=== PATIENT | female | born 1940 | race Caucasian/White ===

== ENCOUNTER 2017-10-26 21:15 | Emergency (ER) | payer MEDICARE, OTHER ==
[~2017-10-26] VITALS: Ht 165.1 cm; Wt 72.2 kg
[2017-10-26] MEDS ORDERED: ONDANSETRON ODT 4 MG PO ONE (22:00)
[2017-10-26] MEDS ORDERED: ONDANSETRON ODT 4 MG ONE (22:05)
[2017-10-26 22:11] LABS: BASOPHILS # (AUTO) 0.07 x10^3/uL (0-0.1); BASOPHILS % (AUTO) 1 % (0-1); EOSINOPHILS # (AUTO) 0.02 x10^3/uL (0-0.4); EOSINOPHILS % (AUTO) 0 % (1-7); LYMPHOCYTES % (AUTO) 11 % (22-44); MD NO; MEAN CORPUSCULAR HEMOGLOBIN 31.8 pg (27.0-34.8); MEAN CORPUSCULAR HGB CONC 33.6 g/dL (32.4-35.8); MEAN CORPUSCULAR VOLUME 94.4 fL (80-100); MEAN PLATELET VOLUME 9.7 fL (7.4-10.4); MONOCYTES # (AUTO) 0.92 x10^3/uL (0.2-0.8); MONOCYTES % (AUTO) 8 % (2-9); NEUTROPHILS # (AUTO) 9.25 x10^3/uL (1.8-6.8); NEUTROPHILS % (AUTO) 81 % (42-75); PLATELET COUNT 201 x10^3/uL (130-400); RED BLOOD COUNT 4.03 x10^6/uL (3.82-5.3); RED CELL DISTRIBUTION WIDTH 14.2 % (9.6-15.2)
[2017-10-26 22:23] LABS: ALBUMIN 3.8 g/dL (3.4-5.0); ANION GAP 6 mmol/L (5-15); CALCIUM 9.2 mg/dL (8.5-10.1); CHLORIDE 107 mmol/L (98-107); CREATININE 0.84 mg/dL (0.55-1.02)
[2017-10-26 22:27] LABS: CULTURE INDICATED? YES; MICROSCOPIC INDICATED
[2017-10-26] MEDS ORDERED: CEFDINIR 300 MG CAPSULE ONE (22:50)
[2017-10-26 22:54] VITALS: BP 150/67
[2017-10-26] MEDS ORDERED: CEFDINIR 300 MG CAPSULE PO ONE (23:00)
== END 2017-10-26 23:14 | disposition home or self-care (01) ==
LOC: ED 23:08
DX: N30.01 Acute cystitis with hematuria (principal); Z90.89 Acquired absence of other organs
CPT/HCPCS: 36415; 80048; 81001; 82040; 85025; 87077; 87086; 87186; 99284; Q0162